=== PATIENT | female | born 1960 | race Caucasian/White ===

== ENCOUNTER → 2018-11-17 10:21 | Outpatient (CLI) | payer OTHER, SELFPAY ==
--- NOTE | 2018-11-17 11:16 | PM.TREADMILL ---
Cardiac Stress Test Report Referral & Results Date Patient Seen: 11/17/18 Requesting provider: Dago Romero Indication: Dyspnea upon exertion Rest ECG: Unremarkable Procedure Note: Today following both written and verbal informed consent the patient was exercised according to a standard Eric protocol patient went for a total of 7 min 1 sec achieving a maximum heart rate of 178 maximum systolic blood pressure of 160. This is approximately 10.1 METS. Exercise was terminated at this point because of inability the patient to continue and targets were met. Patient was also given Cardiolite through a previously started Hep-Lock IV by the staff nuclear weapons officer approximately 1 minute prior to the cessation of exercise. No ST-T segment changes were identified Normal heart rate and blood pressure response to exercise Functional aerobic impairment rate 0 on the active scale or-15% of the sedentary scale Impression: No ECG evidence of ischemia Better than average exercise capacity Please see perfusion imaging report as well Please note: Actual ECG tracings can be found in the PACS system.
--- NOTE | 2018-11-18 15:35 | DI.NM.S_ITS ---
DATE OF SERVICE: 11/17/2018 PROCEDURE: Exercise perfusion study. INDICATIONS: Exertional shortness of breath with history of hyperlipidemia. RADIOPHARMACEUTICAL: 22.0 mCi technetium-99m Myoview IV was injected at stress and 25.1 mCi technetium-99m Myoview IV was injected at rest. CARDIAC STRESS: Patient underwent exercise perfusion study under the supervision of an attending staff. She walked on Eric protocol for 7 minutes 01 seconds and achieved 111% of target heart rate with normal blood pressure, 10.1 METs of workload. Functional aerobic impairment was 0%. Baseline EKG revealed sinus rhythm. Stress EKG did not reveal any obvious inducible conferencing ischemic changes. There were no significant arrhythmias. No chest pain. RAW DATA: There was breast shadow seen. GATED STUDY: Stress LV ejection fraction 89%. I don't see any obvious wall motion abnormalities. Resting LV end-diastolic volume is 63 mL. No transient ischemic dilatation. TID ratio is 0.76, which is within normal limits. Lung/heart ratio is 0.27, which is within normal limits. MYOCARDIAL PERFUSION SCAN: Stress supine, resting supine, and stress prone images were compared to each other. Stress supine and resting supine images revealed small-sized mildly decreased perfusion of anterior apex which got resolved during prone images suggestive of breast tissue attenuation artifact. CONCLUSION: I will call this study a normal myocardial perfusion study with evidence of breast tissue attenuation artifact which got resolved during prone images. Overall, this is a low-risk myocardial perfusion scan. SEAN RAMIRES - [employer]ATION RELATIONS MANAGER/fn/ab doc#: [id number]/job#: [id number] dd: 11/18/2018 12:34:00 dt: 11/18/2018 15:26:00 DICTATING MD/COPIES TO: Kailyn Welsh MD COPIES MNE: [id number]
== END ==
PROVIDERS: Visit Provider Student in an Organized Health Care Education/Training Program
DX: R06.02 Shortness of breath (principal); R06.00 Dyspnea, unspecified; E78.5 Hyperlipidemia, unspecified
CPT/HCPCS: 78452; 93016; 93017; 93018; A9502